=== PATIENT | female | born 1965 | race Two or more races ===

== ENCOUNTER 2018-12-05 18:47 | Emergency (ER) | payer SELFPAY ==
[~2018-12-05] VITALS: Ht 162.6 cm; Wt 88.9 kg
[2018-12-05 18:54] VITALS: BP 144/81
== END 2018-12-05 23:10 | disposition home or self-care (01) ==
LOC: EDBD 18:47 → ER 18:54
DX: S13.9XXA Sprain of joints and ligaments of unspecified parts of neck, initial encounter (principal); S20.219A Contusion of unspecified front wall of thorax, initial encounter; V43.52XA Car driver injured in collision with other type car in traffic accident, initial encounter; Y93.89 Activity, other specified; Y99.8 Other external cause status; Y92.89 Other specified places as the place of occurrence of the external cause
CPT/HCPCS: 71250; 72040; 72125; 73562